=== PATIENT | female | born 1965 | race Caucasian/White ===

== ENCOUNTER 2018-07-11 08:35 | Emergency (ER) | payer OTHER | END 2018-07-11 10:30 | disposition home or self-care (01) | LOC: JERFT 08:35 ==

== ENCOUNTER 2018-07-21 10:34 | Emergency (ER) | payer OTHER | END 2018-07-21 10:58 | disposition home or self-care (01) | LOC: JERFT 10:34 ==

== ENCOUNTER 2020-08-28 14:16 | Emergency (ER) | payer OTHER ==
[2020-08-28 14:35] VITALS: BMI 25.0
[2020-08-28] MEDS ORDERED: KETOROLAC TROMETHAMINE 30 MG/1 ML VIAL IM ONE (15:23)
[2020-08-28] MEDS ORDERED: KETOROLAC TROMETHAMINE 30 MG/1 ML VIAL ONE (15:26)
[2020-08-28] MEDS ORDERED: SODIUM CHLORIDE 0.9% 500 ML INFUS.BAG IV ONE (16:00)
[2020-08-28] MEDS ORDERED: CEFAZOLIN 1 GM in DEXTROSE 5%-WATER - 50 ML IVPB ONE (16:01)
[2020-08-28] MEDS ORDERED: TETANUS AND DIPHTHERIA TOXOID 0.5 ML DISP.SYRIN IM ONE (16:21)
[2020-08-28] MEDS ORDERED: PROPOFOL 200 MG/20 ML VIAL IVPUSH ONE (16:28)
[2020-08-28] MEDS ORDERED: CEFAZOLIN 1 GM/D5W 1 GM/50 ML BAG ONE (17:00)
[2020-08-28] MEDS ORDERED: PROPOFOL 20 ML ONE (17:05)
[2020-08-28] MEDS ORDERED: DIPHTH,PERTUSS(ACELL),TET 0.5 ML DISP.SYRIN IM ONE ×2 (17:08→18:37)
[2020-08-28 17:17] LABS: BASO % 0.1 % (0-2.0); HEMATOCRIT 36.4 % (32.4-45.2); HEMOGLOBIN 12.4 GM/dL (10.7-15.3); LYMPH % 11.8 % (8-40); MCHC 34.2 g/dl (32.0-36.0); MEAN CELL VOLUME 90.7 fl (80-96); MEAN PLT VOLUME 8.1 fl (7.5-11.1); MONO % 8.7 % (3.8-10.2); NEUT % 79.4 % (42.8-82.8); PLATELET COUNT 266 10^3/uL (134-434); RBC 4.01 M/mm3 (3.60-5.2); RDW 12.8 % (11.6-15.6)
[2020-08-28 17:24] LABS: INR 0.89 (0.83-1.09)
[2020-08-28] MEDS ORDERED: morphine SULFATE 4 MG/ML VIAL ONE (17:29)
[2020-08-28 17:42] LABS: ALBUMIN 4.4 g/dl (3.4-5.0); BLOOD UREA NITROGEN 15.4 mg/dL (7-18); CALCIUM 8.8 mg/dL (8.5-10.1)
[2020-08-28 17:44] LABS: CREATININE 0.8 mg/dL (0.55-1.3)
[2020-08-28 17:47] LABS: BILIRUBIN,TOTAL 0.4 mg/dL (0.2-1); TOT PROT 7.6 g/dl (6.4-8.2)
[2020-08-28] MEDS ORDERED: morphine CARPU-JECT 4 MG/1 ML DISP.SYRIN IVPUSH ONE (17:49)
[2020-08-28 21:02] VITALS: BP 128/74; PULSE 91
[2020-08-28 21:07] VITALS: TEMP 99
== END 2020-08-28 21:09 | disposition short-term general hospital (02) ==
LOC: JER 14:16 → JERFT 14:16 → JER 21:09
PROC: 0SSGXZZ Reposition Left Ankle Joint, External Approach (ICD-10-PCS; principal; 2020-08-28)
PROC: 3E03329 Introduction of Other Anti-infective into Peripheral Vein, Percutaneous Approach (ICD-10-PCS; 2020-08-28)
PROC: 3E0234Z Introduction of Serum, Toxoid and Vaccine into Muscle, Percutaneous Approach (ICD-10-PCS; 2020-08-28)
PROC: 3E033NZ Introduction of Analgesics, Hypnotics, Sedatives into Peripheral Vein, Percutaneous Approach (ICD-10-PCS; 2020-08-28)
DX: S82.302A Unspecified fracture of lower end of left tibia, initial encounter for closed fracture (principal)
CPT/HCPCS: 36415; 73590-TC-LT-FY; 73610-TC-LT-FY; 73630-TC-LT; 80053; 85025; 85610; 85730; 86850; 86900; 86901; 87040; 90715; 99285-25; C9803; U0003; U0005